=== PATIENT | male | born 1980 | race African-American/Black ===

== ENCOUNTER 2018-07-22 11:08 | Emergency (ER) | payer OTHER ==
[~2018-07-22] VITALS: Ht 157.5 cm; Wt 72.6 kg
[~2018-07-22 11:08] MED LIST: BACTRIM DS TAB1 EACH PO; CEPHALEXIN 500500 M3 PO; ONDANSETRON HCL4 M2 PO; PERCOCET PO
[2018-07-22 11:36] LABS: HEMATOCRIT 41.9 % (42.0-52.0); HEMOGLOBIN 13.9 gm/dL (14.0-18.0); MCH 30.5 pg (26.0-34.0); MCHC 33.3 g/dL (28.0-37.0); MCV 91.6 fL (80.0-100.0); NUCLEATED RBCS 0 /100WBC; PLATELET COUNT* 299 thou/uL (150-400); RBC 4.57 mil/uL (4.50-6.00); RDW-CV 13.9 % (10.5-14.5); WBC 4.7 thou/uL (4.0-11.0)
[2018-07-22 11:49] LABS: ANION GAP 4 mmol/L (7-16); BUN 12 mg/dL (7-18); CALCIUM 8.2 mg/dL (8.5-10.1); CHLORIDE 105 mmol/L (98-107); CO2 31 mmol/L (21-32); CREATININE 1.3 mg/dL (0.6-1.3); GLUCOSE 102 mg/dL (70-99); POTASSIUM 3.3 mmol/L (3.5-5.1); SODIUM 140 mmol/L (136-145)
[2018-07-22 11:57] LABS: ALBUMIN 3.4 g/dL (3.4-5.0); ALKALINE PHOSPHATASE 95 U/L (46-116); LIPASE 149 U/L (73-393); SGOT 16 U/L (15-37); SGPT 15 U/L (30-65); TOTAL BILIRUBIN 0.2 mg/dL (<0.1-1.0); TOTAL PROTEIN 7.1 g/dL (6.4-8.2); TROPONIN-I LEVEL <0.06 ng/mL (<0.06)
[2018-07-22 12:20] LABS: ABSOLUTE EOSINOPHILS 0.4 thou/uL (0.0-0.7); ABSOLUTE LYMPHOCYTES 1.5 thou/uL (0.8-5.3); ABSOLUTE MONOCYTES 0.1 thou/uL (0.0-1.2); ABSOLUTE NEUTROPHILS 2.7 thou/uL (1.6-8.1); PLATELET ESTIMATE ADEQUATE
[2018-07-22 13:22] LABS: URINE BILIRUBIN NEGATIVE (Negative); URINE BLOOD NEGATIVE (Negative); URINE CLARITY CLEAR; URINE COLOR YELLOW; URINE GLUCOSE-RANDOM NEGATIVE (Negative); URINE KETONES NEGATIVE (Negative); URINE LEUKOCYTES-REFLEX NEGATIVE (Negative); URINE NITRITE-REFLEX NEGATIVE (Negative); URINE PROTEIN TRACE (Negative); URINE SPECIFIC GRAVITY 1.025 (1.005-1.030); URINE UROBILINOGEN 0.2 E.U./dl (0.2-1.0)
[2018-07-22] MEDS ORDERED: HYDROCHLOROTH12.5 M2 PO (13:54)
[2018-07-22 14:19] VITALS: BP 169/116
--- NOTE | 2018-07-22 17:35 | EKG ---
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 : 1980 Requested By: Tank Alston Order Number: [id number] MD: Bib Colindres Measurements Intervals [place] Rate: 96 P: 56 [place]: 135 QRS: 29 QRSD: 95 T: QT: 358 QTc: 453 Interpretive Statements Sinus rhythm Probable left atrial enlargement Left ventricular hypertrophy Borderline T abnormalities, lateral leads ST elevation, consider early repolarization No previous ECG available for comparison Electronically Signed On 07-22-2018 17:35:51 [employer] COORDINATOR by Bib Colindres [email or web address] <ELECTRONICALLY SIGNED> By: Bib Colindres MD, [facility] 07/22/18 1735 1114 111 Bib Colindres MD, FACC /EPI
--- NOTE | 2018-07-22 17:38 | EKG ---
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
== END 2018-07-22 14:20 | disposition home or self-care (01) ==
LOC: M.ERS 11:08
PROVIDERS: Emergency Medicine Emergency Medical Services
DX: I10 Essential (primary) hypertension (principal); R42 Dizziness and giddiness; F17.210 Nicotine dependence, cigarettes, uncomplicated

== ENCOUNTER 2018-11-18 08:58 | Emergency (ER) | payer OTHER ==
[~2018-11-18] VITALS: Ht 162.6 cm; Wt 68.0 kg
[~2018-11-18 08:58] MED LIST changes: +HYDROCHLOROTH12.5 M2 PO
[2018-11-18 09:49] LABS: CALCIUM 8.3 mg/dL (8.5-10.1); CREATININE 1.4 mg/dL (0.6-1.3); POTASSIUM 3.7 mmol/L (3.5-5.1)
[2018-11-18] MEDS ORDERED: HYDROCHLOROTH12.5 M2 PO (10:11)
[2018-11-18 10:56] VITALS: BP 170/100
== END 2018-11-18 10:57 | disposition home or self-care (01) ==
LOC: M.ERS 08:58
PROVIDERS: Emergency Medicine Emergency Medical Services
DX: I10 Essential (primary) hypertension (principal); F17.210 Nicotine dependence, cigarettes, uncomplicated

== ENCOUNTER 2019-01-04 14:42 | Emergency (ER) | payer OTHER ==
[~2019-01-04] VITALS: Ht 162.6 cm; Wt 63.5 kg
[~2019-01-04 14:42] MED LIST changes: -NORVASC10 MG PO
[2019-01-04] MEDS ORDERED: NORVASC10 MG PO (14:56)
[2019-01-04 16:52] VITALS: BP 176/106
== END 2019-01-04 16:53 ==
LOC: M.ERS 14:42
DX: I10 Essential (primary) hypertension (principal); F17.210 Nicotine dependence, cigarettes, uncomplicated

== ENCOUNTER → 2019-01-04 | Emergency (ER) | payer OTHER ==
[~2019-01-04] VITALS: Ht 162.6 cm; Wt 68.0 kg
[~2019-01-04] MED LIST changes: +NORVASC10 MG PO
[2019-01-04 19:06] VITALS: BP 173/120
--- NOTE | 2019-01-07 12:59 | EKG ---
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 : 1980 Requested By: Carlitos Bravo Order Number: [id number] MD: Bib Colindres Measurements Intervals [place] Rate: 84 P: 60 [place]: 134 QRS: 42 QRSD: 98 T: 176 QT: 390 QTc: 462 Interpretive Statements Sinus rhythm LAE, consider biatrial enlargement LVH with secondary repolarization abnormality Anterior ST elevation, probably due to LVH Compared to ECG 07/22/2018 14:10:33 no change Electronically Signed On 01-07-2019 12:59:18 CDT by Bib Colindres [email or web address] <ELECTRONICALLY SIGNED> By: Bib Colindres MD, [facility] 01/07/19 3799 1856 55 Bib Colindres MD, [facility] /EPI
== END ==
LOC: M.ERS 18:47
DX: I10 Essential (primary) hypertension (principal); F17.210 Nicotine dependence, cigarettes, uncomplicated

== ENCOUNTER 2019-02-13 09:39 | Emergency (ER) | payer OTHER ==
[~2019-02-13] VITALS: Ht 162.6 cm; Wt 69.4 kg
[~2019-02-13 09:39] MED LIST changes: +AMLODIPINE BESY10 MG PO; +HYDROCHLOROTH12.5 M1 PO; +NORVASC10 MG PO
[2019-02-13 10:20] LABS: ANION GAP 11 mmol/L (7-16); BUN 19 mg/dL (7-18); CALCIUM 8.8 mg/dL (8.5-10.1); CHLORIDE 99 mmol/L (98-107); CO2 27 mmol/L (21-32); CREATININE 1.4 mg/dL (0.6-1.3); GLUCOSE 109 mg/dL (70-99); POTASSIUM 3.6 mmol/L (3.5-5.1); SODIUM 137 mmol/L (136-145)
[2019-02-13 10:29] LABS: TROPONIN-I LEVEL <0.06 ng/mL (<0.06)
[2019-02-13 12:33] VITALS: BP 175/105
--- NOTE | 2019-02-14 11:06 | EKG ---
[place] [address] ELECTROCARDIOGRAM REPORT Name: JOHN ALEX Room: 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: : 1980 Requested By: Tank Alston Order Number: [id number] MD: Bib Colindres Measurements Intervals [place] Rate: 62 P: 52 [place]: 132 QRS: 28 QRSD: 103 T: 179 QT: 432 QTc: 439 Interpretive Statements Sinus rhythm Probable left atrial enlargement LVH with secondary repolarization abnormality Anterior ST elevation, probably due to LVH Compared to ECG 02/12/2019 05:07:36 No significant changes Electronically Signed On 02-14-2019 11:06:20 CDT by Bib Colindres [email or web address] <ELECTRONICALLY SIGNED> By: Bib Colindres MD, [facility] 02/14/19 1106 0942 0942 Bib Colindres MD, [facility] /EPI
== END 2019-02-13 12:33 | disposition home or self-care (01) ==
LOC: M.ERS 09:39
PROVIDERS: Emergency Medicine Emergency Medical Services
DX: I10 Essential (primary) hypertension (principal); F17.210 Nicotine dependence, cigarettes, uncomplicated